=== PATIENT | female | born 1960 | race Caucasian/White ===

== ENCOUNTER → 2017-10-28 | Day surgery (SDC) | payer BC ==
[2017-10-25 12:31] LABS: BASOPHILS % 0.6 % (0.0-1.0); EOSINOPHILS # (AUTO) 0.1 (0.0-0.4); EOSINOPHILS % 1.1 % (0.0-6.0); HEMATOCRIT 39.7 % (34.2-44.1); HEMOGLOBIN 13.4 g/dL (12.0-16.0); LYMPHOCYTES # (AUTO) 2.7 (1.0-3.2); LYMPHOCYTES % 38.8 % (18.0-39.1); MEAN CORPUSCULAR HEMOGLOBIN 31.8 pg (28-32); MEAN CORPUSCULAR HGB CONC 33.8 g/dL (31-35); MEAN CORPUSCULAR VOLUME 94.1 fL (81-99); MONOCYTES # (AUTO) 0.7 (0.2-0.8); MONOCYTES % 9.5 % (4.4-11.3); NEUTROPHILS # (AUTO) 3.5 (2.1-6.9); NEUTROPHILS % 49.9 % (38.7-80.0); PLATELET COUNT 222 x10e3/uL (140-360); RED BLOOD COUNT 4.22 x10e6/uL (3.6-5.1); RED CELL DISTRIBUTION WIDTH 11.8 % (11.7-14.4)
[2017-10-25 12:53] LABS: ALANINE AMINOTRANSFERASE 11 IU/L (0-55); ALBUMIN 4.2 g/dL (3.5-5.0); ALBUMIN/GLOBULIN RATIO 1.2 (0.8-2.0); ALKALINE PHOSPHATASE 52 IU/L (40-150); ANION GAP 13.6 mmol/L (8-16); BLOOD UREA NITROGEN 13 mg/dL (7-26); BUN/CREATININE RATIO 16 (6-25); CARBON DIOXIDE 26 mmol/L (22-29); CHLORIDE 103 mmol/L (98-107); CHOL/HDL RATIO 4.2 (3.0-3.6); CHOLESTEROL 185 MD/DL (0-199); CREATININE, SERUM 0.83 mg/dL (0.57-1.11); EST GLOMERULAR FILTRATION RATE > 60 ML/MIN (60-); GLUCOSE 95 mg/dL (74-118); HDL CHOLESTEROL 44 MG/DL (40-60); LDL CHOLESTEROL 118 MG/DL (60-130); POTASSIUM 4.6 mmol/L (3.5-5.1); SODIUM 138 mmol/L (136-145); TRIGLYCERIDES 117 MG/DL (0-149)
[~2017-10-28] VITALS: Ht 175.3 cm; Wt 98.4 kg
[2017-10-28] VITALS (11 sets, daily range): BP systolic 112–153; BP diastolic 53–84
[~2017-10-28] MED LIST: FAMOTIDINE 20 MG TAB ONE; FENTANYL CITRATE/PF 100MCG/2 ML INJ ONE; GARLIC1 EAC1; GARLIC500 M1 PO; HEPARIN SOD/SOD CHLORIDE 2,000 ML ONE; IOPAMIDOL 370 MG/ML 200 ML INFUS..BTL INJ ONE; LANSOPRAZOLE15 MG PO; LIDOCAINE HCL 2% LOCAL 20 ML VIAL ONE; LORAZEPAM INJ 2 MG/ML VIAL ONE; METOPROLOL SUCC50 MG PO; MIDAZOLAM HCL 2 MG/2 ML VIAL ONE; SODIUM CHLORIDE 0.9% 1000ML 1,000 ML ONE; UBIQUINOL100 MG PO; VITAMIN D1000 UNI1 PO; [UNRECOGNIZED DRUG - OTHER] PO
--- NOTE | 2017-10-28 20:43 | Operative Report ---
DATE OF PROCEDURE: October 28, 2017 INDICATIONS: This 57-year-old patient was admitted to [facility] after she presented with complaints of chest pain, palpitation, hypertension and had an abnormal treadmill exercise test. The patient was evaluated for repair of basalioma in her nasal region under general anesthesia. DIAGNOSES: 1. Chest pain and palpitation. 2. Hypertensive cardiovascular disease. 3. Basalioma. 4. Gastroesophageal reflux disease. 5. Vertigo. PROCEDURES: 1. Cardiac catheterization including selective coronary angiogram and left ventricular angiogram. 2. Abdominal aortography. 3. Closure of the left femoral artery with Angio-Seal closure device. DESCRIPTION OF PROCEDURE: After usual prepping and draping, the left inguinal area was infiltrated with local lidocaine. The left femoral artery was then punctured percutaneously and under modified Seldinger technique, a 6-[place]ilean arterial sheath was placed in the left femoral artery. The left femoral vein was also cannulated and a guidewire was inserted and left in place throughout the procedure. Selective coronary angiography was then performed by using modified Azul catheters. A 6-[place]ilean angled pigtail catheter was utilized for recording of hemodynamics and left ventricular angiogram in the 30 degree SOUTH projection. At the end of the procedure, angiogram of the left coronary artery and the left anterior oblique procedure was performed prior to closure of the left femoral artery with Angio-Seal. A guidewire from the left femoral vein was then removed. Pressure was applied until hemostasis was achieved. The dressing was applied. The patient was transferred to the observation area in stable condition. There were no complications. The procedure was well tolerated. FINDINGS OF CARDIAC CATHETERIZATION: The left ventricular pressure was 135. The aortic pressure was 134/60 with a mean of 92 mmHg. The left ventricular end-diastolic pressure was elevated with 22 mmHg. The left coronary artery showed early bifurcation with separate orifices for the LAD and left circumflex. The left anterior descending branch showed a proximal 25% calcified plaque. The remainder of the LAD and the diagonal branches were normal. The left circumflex obtuse marginal system was also normal. The right coronary artery showed about 10% narrowing in the mid portion, however, the distal right coronary artery including the posterior descending branch were enlarged. The posterolateral branch was normal. The left ventricular angiogram showed normal wall motion and normal contractility with an ejection fraction of 60%. After completion of her cardiac catheterization, the pigtail catheter was positioned at renal level for abdominal aortography. The findings of the abdominal aortogram showed some mild ostial plaques in the right coronary artery and left coronary artery amounting to about 10% stenosis. It does appear to be normal. There was some mild arteriosclerotic plaque formation in the infrarenal abdominal aorta without any aneurysm. The common and external iliac arteries appeared normal and also the visualized proximal portion of the superficial femoral artery and profunda branch appeared to be normal. Also, normal celiac and superior mesenteric arteries were visualized. IMPRESSION: 1. Mild calcific coronary artery disease involving the left anterior descending branch and right coronary artery. 2. Left ventricular dysfunction with an elevated left ventricular end-diastolic pressure of 22 mmHg, but normal global ejection fraction of 60%. 3. Mild ostial stenosis of the right and left renal arteries. The findings were discussed in detail with the patient and her and it was recommended to continue medical therapy with low-cholesterol weight reduction diet and antihypertensive medication. However, the patient is cleared to proceed with surgical repair of her basal cell carcinoma. Job#: [id number]
== END | disposition home or self-care (01) ==
LOC: CATH LAB 11:44 → EDBD 13:00
PROVIDERS: ATTEND Internal Medicine Cardiovascular Disease
DX: I25.10 Atherosclerotic heart disease of native coronary artery without angina pectoris (principal); I47.1 Supraventricular tachycardia; I70.1 Atherosclerosis of renal artery; I11.9 Hypertensive heart disease without heart failure; R94.39 Abnormal result of other cardiovascular function study; C44.311 Basal cell carcinoma of skin of nose; K21.9 Gastro-esophageal reflux disease without esophagitis; K44.9 Diaphragmatic hernia without obstruction or gangrene; Z01.812 Encounter for preprocedural laboratory examination
CPT/HCPCS: 36415; 75625; 80053; 80061; 85025; 93458; J2001; J2060; J2250; J7030; Q9967